=== PATIENT | male | born 1980 | race African-American/Black ===

== ENCOUNTER 2018-01-30 04:29 | Inpatient (IN) | payer BC, OTHER ==
[2018-01-30] VITALS (8 sets, daily range): BP systolic 132–149; BP diastolic 75–100
[~2018-01-30] VITALS: Ht 180.3 cm; Wt 121.1 kg
--- NOTE | ~2018-01-30 | 2DMMODE ---
[facility] [place] [address] 2 D/M-MODE ECHOCARDIOGRAM Name: ARIES FLORES Room #: 210-P [facility]#: [id number] Admission: 01/30/18 Attend Phys: Girish Lott Discharge: Date of : 78 Date of Service: 01/30/18 1743 Report #: [id number] THIS REPORT FOR: //name// APPROVED REPORT Study performed: 01/30/2018 13:26:16 EXAM: Comprehensive 2D, Doppler, and color-flow Echocardiogram Patient Location: In-Patient Room #: 210 Status: routine BSA: 43.68 HR: 76 bpm Rhythm: NSR Other Information Study Quality: Good Indications Pulmonary Embolism Syncope 2D Dimensions IVSd: 16.02 (7-11mm) LVOT Diam: 21.94 (18-24mm) LVDd: 48.04 mm PWd: 14.24 (7-11mm) LVDs: 31.23 (25-40mm) Left Atrium: 34.87 (27-40mm) Aortic Root: 27.92 mm IVC: 2.30 mm Volumes Left Atrial Volume (Systole) Single Plane 4CH: 38.01 mL Single Plane 2CH: 64.40 mL Aortic Valve AoV Peak Blaze.: 1.17 m/s AO Peak Gr.: 5.51 mmHg LVOT Max P.38 mmHg LVOT Max V: 0.92 m/s HAWA Vmax: 2.97 cm2 Mitral Valve E/A Ratio: 1.2 MV Decel. Time: 223.74 ms MV E Max Blaze.: 0.66 m/s [facility] [address] [place] [address] 2 D/M-MODE ECHOCARDIOGRAM Name: ARIES FLORES Room #: 210-P [facility]#: [id number] Admission: 01/30/18 Attend Phys: Girish Lott Discharge: Date of : 78 Date of Service: 01/30/18 1743 Report #: [id number] MV A Blaze.: 0.56 m/s MV PHT: 64.88 ms Pulmonary Valve PV Peak Blaze.: 1.12 m/s PV Peak Gr.: 5.06 mmHg Pulmonary Vein P Vein S: 0.44 m/s P Vein A: 0.34 m/s P Vein D: 0.46 m/s P Vein A Dur.: 124.6 msec P Vein S/D Ratio: 0.96 Tricuspid Valve TR Peak Blaze.: 2.79 m/s RAP Estimate: 3.00 mmHg TR Peak Gr.: 31.20 mmHg PA Pressure: 34.00 mmHg Left Ventricle The left ventricle is normal size. Moderate to severe concentric left ventricular hypertrophy. The left ventricular systolic function is normal. The left ventricular ejection fraction is within the normal range. LVEF is 50-55%. The left ventricular diastolic function is normal. Right Ventricle Right ventricle is mild to moderately dilated. There is normal right ventricular wall thickness. Atria Left atrium is at the upper limits of normal. The right atrium size is normal. Aortic Valve The aortic valve is normal in structure. Trace aortic regurgitation. Calculated aortic valve area is 3 cm2 with maximum pressure gradient of 6 mmHg and mean pressure gradient of mmHg. Mitral Valve The mitral valve is normal in structure. Trace mitral regurgitation. Tricuspid Valve The tricuspid valve is normal in structure. Trace tricuspid regurgitation. Pulmonic Valve The pulmonary valve is normal in structure. Trace pulmonic [facility] [address] [place] [address] 2 D/M-MODE ECHOCARDIOGRAM Name: ARIES FLORES Room #: 210-P [facility] IN ..#: [id number] Admission: 01/30/18 Attend Phys: Girish Lott Discharge: Date of : 78 Date of Service: 01/30/18 1743 Report #: [id number] regurgitation. Great Vessels The aortic root is normal in size. IVC is normal in size and collapses >50% with inspiration. Pericardium There is no pericardial effusion. <Conclusion> The left ventricle is normal size. LVEF is 50-55%. Right ventricle is mild to moderately dilated. The aortic valve is normal in structure. Trace aortic regurgitation. Calculated aortic valve area is 3 cm2 with maximum pressure gradient of 6 mmHg and mean pressure gradient of mmHg. The mitral valve is normal in structure. Trace mitral regurgitation. The pulmonary valve is normal in structure. Trace pulmonic regurgitation. There is no pericardial effusion. <ELECTRONICALLY SIGNED> By: Oli Mayo MD 01/30/181742 42 42 Oli Mayo MD /INF
--- NOTE | ~2018-01-30 | EKG ---
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1980 Requested By: Samuel Jiang Order Number: [id number] MD: Gurpreet Win Measurements Intervals [place] Rate: 79 P: 55 AK: 178 QRS: 60 QRSD: 105 T: -45 QT: 403 QTc: 463 Interpretive Statements Sinus rhythm Abnormal R-wave progression, late transition Borderline T abnormalities, diffuse leads Baseline wander in lead(s) V6 No previous ECG available for comparison Electronically Signed On 01-30-2018 9:49:09 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
[~2018-01-30 04:29] MED LIST: CYCLOBENZAPRINE5 MG PO; IBUPROFEN 800800 MG PO; LANTUS SOL100 UNIT/1 SQ; LISINOPRIL20 MG PO; METFORMIN HCL500 MG PO; NORCO 5-325 TA1 EACH PO
[2018-01-30 04:39] LABS: ABSOLUTE NEUTROPHILS 2.3 thou/uL (1.4-8.2); BASOPHILS 0.5 % (0.0-2.0); EOSINOPHILS 2.4 % (0.0-3.0); HEMATOCRIT 43.8 % (42.0-52.0); HEMOGLOBIN 14.4 gm/dL (14.0-18.0); LYMPHOCYTES 53.2 % (24.0-44.0); MONOCYTES 6.7 % (1.0-8.0); PLATELET COUNT 166 thou/uL (150-400); POLYS 37.2 % (36.0-66.0); RBC 4.81 mil/uL (4.50-6.00); RDW 13.5 % (10.5-14.5); WBC 6.1 thou/uL (4.0-11.0)
[2018-01-30 04:47] LABS: ANION GAP 12 mmol/L (7-16); BUN 16 mg/dL (7-18); CALCIUM 8.6 mg/dL (8.5-10.1); CHLORIDE 105 mmol/L (98-107); CO2 26 mmol/L (21-32); CREATININE 1.1 mg/dL (0.7-1.3); GLUCOSE 167 mg/dL (74-106); POTASSIUM 3.5 mmol/L (3.5-5.1); SODIUM 143 mmol/L (136-145)
[2018-01-30 04:56] LABS: ALBUMIN 3.7 g/dL (3.4-5.0); MAGNESIUM 1.6 mg/dL (1.8-2.4); SGOT 27 U/L (15-37); SGPT 38 U/L (30-65); TOTAL BILIRUBIN 0.9 mg/dL (<0.1-1.0); TOTAL PROTEIN 7.1 g/dL (6.4-8.2); TROPONIN-I <0.06 ng/mL (<0.06)
[2018-01-30 05:06] LABS: APTT 23.1 Seconds (24.5-32.8); PROTIME 10.6 Seconds (9.3-11.4)
[2018-01-30 05:14] LABS: D-DIMER 16.69 ug/mLFEU (0.19-0.50)
[2018-01-30 05:39] LABS: URINE BILIRUBIN NEGATIVE (Negative); URINE BLOOD NEGATIVE (Negative); URINE CLARITY CLEAR; URINE COLOR YELLOW; URINE GLUCOSE-RANDOM* NEGATIVE (Negative); URINE KETONES NEGATIVE (Negative); URINE LEUKOCYTES-REFLEX NEGATIVE (Negative); URINE NITRITE-REFLEX NEGATIVE (Negative); URINE PROTEIN (DIPSTICK) 2+ (Negative); URINE SPECIFIC GRAVITY >= 1.030 (1.005-1.035)
[2018-01-30 05:47] LABS: AMP/METHAMP Negative (Negative); BARBITURATES Negative (Negative); BENZODIAZEPINES Negative (Negative); COCAINE Negative (Negative); METHADONE Negative (Negative); OPIATES Negative (Negative); PCP Negative (Negative)
[2018-01-30 06:12] LABS: BACTERIA-REFLEX None Seen /HPF (None Seen); CRYSTALS None Seen /LPF (None Seen); HYALINE CASTS 0-3 Few /LPF (None Seen); MUCUS >6 Heavy strn/LPF (None Seen); SQUAMOUS 0-3 Few /LPF (0-3); URINE RBC None Seen /HPF (0-2); URINE WBC-REFLEX 0-5 Rare /HPF (0-5)
[2018-01-31 05:00] VITALS: BP 130/95
[2018-01-31 08:50] VITALS: BP 130/91
[2018-01-31 11:55] VITALS: BP 136/89
[2018-01-31 15:50] VITALS: BP 136/98
[2018-01-31 19:41] VITALS: BP 132/79
[2018-02-01 05:01] VITALS: BP 130/82
[2018-02-01 07:55] VITALS: BP 136/92
[2018-02-01 12:00] VITALS: BP 137/89
[2018-02-01 15:35] VITALS: BP 118/79
[2018-02-01 20:15] VITALS: BP 134/85
[2018-02-02 06:00] VITALS: BP 127/73
[2018-02-02 08:45] VITALS: BP 139/89
[2018-02-02] MEDS ORDERED: ELIQUIS5 M1 PO (08:46)
[2018-02-02 09:07] VITALS: BP 139/89
== END 2018-02-02 10:52 | disposition home or self-care (01) | DRG 175 ==
LOC: ER 04:29 → EROBS 07:21 → 2N 09:12
PROVIDERS: Emergency Medicine; Hospitalist
DX: I26.09 Other pulmonary embolism with acute cor pulmonale (principal); J96.01 Acute respiratory failure with hypoxia; D68.59 Other primary thrombophilia; E11.9 Type 2 diabetes mellitus without complications; I27.20 Pulmonary hypertension, unspecified; Z79.899 Other long term (current) drug therapy
CPT/HCPCS: 10081

== ENCOUNTER → 2018-08-21 | Outpatient (CLI) | payer BC, OTHER ==
[~2018-08-21] MED LIST changes: +ELIQUIS5 M1 PO
--- NOTE | 2018-08-21 09:50 | 2DMMODE ---
[facility] [place] [address] 2 D/M-MODE ECHOCARDIOGRAM Name: ARIES FLORES Room #: REG COUNTS INCLUDE 234 BEDS AT THE [facility]#: [id number] ������������� Admission: 08/21/18 ������������� Attend Phys: Diallo Shaw Discharge: ��� ������������� ��� Date of : 78 Date of Service: 08/21/18 0950 �� Report #: [id number] �������� ��������������������������������������������[id number] THIS REPORT FOR: //name// APPROVED REPORT Study performed: 08/21/2018 09:08:37 EXAM: Comprehensive 2D, Doppler, and color-flow Echocardiogram Patient Location: Out-Patient Status: routine BSA: 2.35 HR: 52 bpm BP: 112/78 mmHg Rhythm: NSR Other Information Study Quality: Good Indications Hx PE 2D Dimensions RVDd: 42.47 mm IVSd: 13.17 (7-11mm) LVOT Diam: 22.20 (18-24mm) LVDd: 53.69 mm PWd: 13.89 (7-11mm) Ascending Ao: 30.27 (22-36mm) LVDs: 38.18 (25-40mm) Aortic Root: 27.73 mm IVC: 11.00 mm Volumes Left Atrial Volume (Systole) Single Plane 4CH: 62.30 mL Single Plane 2CH: 58.51 mL LA ESV Index: 29.00 mL/m2 Aortic Valve AoV Peak Blaze.: 1.25 m/s AO Peak Gr.: 6.22 mmHg LVOT Max P.37 mmHg LVOT Max V: 0.77 m/s HAWA Vmax: 2.39 cm2 Mitral Valve E/A Ratio: 1.7 MV Decel. Time: 152.42 ms MV E Max Blaze.: 0.85 m/s [facility] [place] [address] [place] [address] 2 D/M-MODE ECHOCARDIOGRAM Name: ARIES FLORES Room #: REG COUNTS INCLUDE 234 BEDS AT [facility]#: [id number] ������������� Admission: 08/21/18 ������������� Attend Phys: Diallo Shaw Discharge: ��� ������������� ��� Date of : 78 Date of Service: 08/21/18 0950 �� Report #: [id number] �������� ��������������������������������������������[id number] MV A Blaze.: 0.51 m/s MV PHT: 44.20 ms IVRT: 106.11 ms Pulmonary Valve PV Peak Blaze.: 0.87 m/s PV Peak Gr.: 3.07 mmHg Pulmonary Vein P Vein S: 0.55 m/s P Vein A: 0.15 m/s P Vein D: 0.49 m/s P Vein A Dur.: 138.4 msec P Vein S/D Ratio: 1.12 Tricuspid Valve RAP Estimate: 5.00 mmHg Left Ventricle The left ventricle is normal size. Moderate concentric left ventricular hypertrophy. The left ventricular systolic function is normal. The left ventricular ejection fraction is within the normal range. LVEF 55%. The left ventricular diastolic function is normal. Right Ventricle The right ventricle is normal size. The right ventricular systolic function is normal. Atria The left atrium size is normal. Right atrium is mildly dilated. Aortic Valve The aortic valve is normal in structure. Trace aortic regurgitation. There is no aortic valvular stenosis. Mitral Valve The mitral valve is normal in structure. Trace mitral regurgitation. No evidence of mitral valve stenosis. Tricuspid Valve The tricuspid valve is normal in structure. Trace tricuspid regurgitation. Unable to assess PA pressure. Pulmonic Valve The pulmonary valve is normal in structure. Trace to mild pulmonic regurgitation. [facility] [address] [place] [address] 2 D/M-MODE ECHOCARDIOGRAM Name: ARIES FLORES Room #: REG COUNTS INCLUDE 234 BEDS AT THE [facility]#: [id number] ������������� Admission: 08/21/18 ������������� Attend Phys: Diallo Shaw Discharge: ��� ������������� ��� Date of : 78 Date of Service: 08/21/18949 �� Report #: [id number] �������� ��������������������������������������������[id number] Great Vessels The aortic root is normal in size. IVC is normal in size and collapses >50% with inspiration. Pericardium There is no pericardial effusion. <Conclusion> 1. Normal echocardiogram with Doppler 2. No pericardial effusion ��������������������������������������������� <ELECTRONICALLY SIGNED> ���������������������������������������� By: Gurpreet Win MD, [facility] ��������������������������������������������� 08/21/1850 9 0950 Gurpreet Win MD, [facility] /INF
== END ==
LOC: CV 08-14 10:12 → CAT 08:49 → CV 15:47
DX: I37.1 Nonrheumatic pulmonary valve insufficiency (principal); I51.7 Cardiomegaly; I26.99 Other pulmonary embolism without acute cor pulmonale; I37.8 Other nonrheumatic pulmonary valve disorders

== ENCOUNTER 2019-08-04 13:48 | Emergency (ER) | payer BC, OTHER ==
[~2019-08-04] VITALS: Ht 180.3 cm; Wt 120.2 kg
[2019-08-04] MEDS ORDERED: NOHOMEMEDICATIONS (14:23)
[2019-08-04 14:43] LABS: ABSOLUTE NEUTROPHILS 6.7 thou/uL (1.4-8.2); BASOPHILS 0.3 % (0.0-2.0); EOSINOPHILS 0.2 % (0.0-3.0); HEMATOCRIT 43.6 % (42.0-52.0); HEMOGLOBIN 14.4 gm/dL (14.0-18.0); LYMPHOCYTES 13.2 % (24.0-44.0); MCH 30.6 pg (26.0-34.0); MCV 92.8 fL (80.0-100.0); MONOCYTES 6.3 % (1.0-8.0); RDW 13.8 % (10.5-14.5); WBC 8.3 thou/uL (4.0-11.0)
[2019-08-04 14:53] LABS: CALCIUM 8.7 mg/dL (8.5-10.1); POTASSIUM 3.9 mmol/L (3.5-5.1)
[2019-08-04 15:00] LABS: TOTAL BILIRUBIN 0.8 mg/dL (0.2-1.0); TOTAL PROTEIN 7.8 g/dL (6.4-8.2)
[2019-08-04 15:18] LABS: PLATELET COUNT 197 thou/uL (150-400); PLATELET ESTIMATE NORMAL
[2019-08-04 16:11] LABS: URINE BILIRUBIN NEGATIVE (Negative); URINE BLOOD NEGATIVE (Negative); URINE CLARITY CLEAR; URINE COLOR YELLOW; URINE GLUCOSE-RANDOM* NEGATIVE (Negative); URINE KETONES NEGATIVE (Negative); URINE LEUKOCYTES-REFLEX NEGATIVE (Negative); URINE NITRITE-REFLEX NEGATIVE (Negative); URINE PROTEIN (DIPSTICK) TRACE (Negative)
[2019-08-04] MEDS ORDERED: BENTYL 20 MG TA20 M1 PO (16:55)
[2019-08-04] MEDS ORDERED: ZOFRAN ODT4 MG PO (16:55)
[2019-08-04] MEDS ORDERED: NORCO 5-325 TA1 EAC1 PO (16:55)
[2019-08-04 17:05] VITALS: BP 146/79
--- NOTE | 2019-08-05 08:49 | EKG ---
[facility] [place] [address] ELECTROCARDIOGRAM REPORT Name: ARIES FLORES Room #: [facility]P [facility] [id number] Admission: 08/04/19 Attend Phys: Discharge: 08/04/19 Date of : 78 Report #: [id number] THIS REPORT FOR: cc: SAM - Kiara family physician/PCP SAM - Kiara family physician/PCP Gurpreet Win MD 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
== END 2019-08-04 17:05 | disposition home or self-care (01) ==
LOC: ER 13:48
PROVIDERS: Physician Assistant
DX: K80.50 Calculus of bile duct without cholangitis or cholecystitis without obstruction (principal); R11.2 Nausea with vomiting, unspecified; R10.13 Epigastric pain; R10.11 Right upper quadrant pain; E11.9 Type 2 diabetes mellitus without complications